=== PATIENT | male | born 1995 | race Caucasian/White ===

== ENCOUNTER 2018-06-11 13:37 | Emergency (ER) | payer OTHER, MEDICAID ==
[~2018-06-11] VITALS: Ht 162.6 cm; Wt 77.1 kg
--- NOTE | 2018-06-11 13:37 | NUR ---
PT BIBA TO ER BED 07
--- NOTE | 2018-06-11 13:45 | NUR ---
PATIENT BIB AMBULANCE TO ED WITH THE CHIEF C/O SEIZURE. PLACED PT ON MONITOR. BEDSIDE SUCTION READY. ACCORDING TO AMBULANCE PERSONNEL PT HAD SEIZURE X7 THAT LASTS FOR 30 SEC WITNESS. PT HAS HX OF PSEUDO SEIZURE. NO LOC NO FALL AFTER SEIZURE ACORDING TO AMBULANCE PERSON. DENIES N/V/D; SKIN IS PINK/WARM/DRY; AAOX4 WITH EVEN AND STEADY GAIT; PT DENIES ANY FEVER, CP, SOB, OR COUGH AT THIS TIME; PATIENT STATES PAIN OF 0/10 AT THIS TIME; VSS; PATIENT POSITIONED FOR COMFORT; HOB ELEVATED; BEDRAILS UP X2. PADDED SIDE RAILS. BED DOWN. ER MD MADE AWARE OF PT STATUS.
[2018-06-11 13:49] VITALS: BP 128/90
[2018-06-11 14:45] VITALS: BP 119/81
--- NOTE | 2018-06-11 14:45 | NUR ---
Patient discharged with v/s stable. Written and verbal after care instructions given and explained. Patient verbalized understanding. Ambulatory with steady gait. All questions addressed prior to discharge. Advised to follow up with PMD.
== END 2018-06-11 14:45 | disposition home or self-care (01) ==
LOC: MED 13:37
DX: F44.5 Conversion disorder with seizures or convulsions (principal); Q87.1 Congenital malformation syndromes predominantly associated with short stature; Z88.8 Allergy status to other drugs, medicaments and biological substances
CPT/HCPCS: 99283